=== PATIENT | female | born 1960 | race Caucasian/White ===

== ENCOUNTER → 2017-05-04 | Outpatient (CLI) | payer MEDICARE, OTHER, MEDICAID | END | disposition home or self-care (01) | LOC: SLPLAB 18:32 | DX: G47.33 Obstructive sleep apnea (adult) (pediatric) (principal) | CPT/HCPCS: 95810 ==

== ENCOUNTER 2018-09-11 21:35 | Emergency (ER) | payer MEDICARE, MEDICAID ==
[~2018-09-11] VITALS: Ht 154.9 cm; Wt 110.7 kg
[~2018-09-11 21:35] MED LIST: ALBU2.5V5 NEB; BENZ-8 PO; BREO ELLIPTA 21 EACH INH; CLON1PAT2 TD; DAPA5TAB PO; DOXY100T PO; FLUT1DIS3 IH; HYDR-2145 PO; HYDR-2769 PO; HYDR12.58 PO; ICOS1CAP PO; INSU100V13 SQ; METF500T16 PO; MONT10TA49 PO; PRED-220 PO; PRED20TA PO; TRAM50TA PO; TRIA1TAB3 PO; VENTOLIN HFA18 GM IH; [UNRECOGNIZED DRUG - CODE] PO
--- NOTE | 2018-09-11 22:24 | PHYS DOC ---
Past Medical History Past Medical History: COPD, Diabetes-Type II, Hypertension, Other Additional Past Medical Histor: uterine cancer with radiation treatment, OBSTRUCTIVE BOWEL (JEREMIAH MARTINES APRN) Past Surgical History: , Hysterectomy, Tonsillectomy, Other Additional Past Surgical Histo: tumor removal (JEREMIAH MARTINES APRN) Alcohol Use: None Drug Use: None (JEREMIAH MARTINES APRN) Adult General Chief Complaint Chief Complaint: LOWER EXT PAIN HPI HPI Patient is a 58 year old [female] who presents with [right leg pain worsening over the past 4-5 days. Patient reports she has had some chronic issues with her right leg, reports she has an appointment pending with the surgeon who plans to stent her blood vessel in her right leg in the next few weeks. Reports she has been told us she does not have a pulse on the leg and this is why they are going to do that. Reports over the past 3 days she has had some increasing discomfort, has been unable to walk as much as normally, and has had some increased pain and cramping in her leg. Reports she has some discomfort in both legs, but right leg feels worse, also has noticed some increased swelling in her right leg.] (JEREMIAH MARTINES APRN) Review of Systems Review of Systems Constitutional: Denies fever or chills [] Eyes: Denies change in visual acuity, redness, or eye pain [] HENT: Denies nasal congestion or sore throat [] Respiratory: Denies cough or shortness of breath [] Cardiovascular: No additional information not addressed in HPI [] GI: Denies abdominal pain, nausea, vomiting, bloody stools or diarrhea [] : Denies dysuria or hematuria [] Musculoskeletal: Denies back pain or joint pain, reports pain to bilateral lower legs, right worse than left [] Integument: Denies rash or skin lesions [] Neurologic: Denies headache, focal weakness or sensory changes [] Endocrine: Denies polyuria or polydipsia [] All other systems were reviewed and found to be within normal limits, except as documented in this note. (JEREMIAH MARTINES APRN) Allergies Allergies Allergies Coded Allergies Type Severity Reaction Last Updated Verified Penicillins Allergy Severe ANAPHYLAXIS 01/09/14 Yes Sulfa (Sulfonamide Antibiotics) Allergy Intermediate HIVES 01/09/14 Yes aspirin Allergy Intermediate HIVES 01/09/14 Yes codeine Allergy Intermediate "GOOSE EGG" 08/06/15 Yes erythromycin base Allergy Intermediate 01/09/14 Yes (PHIL LOTT DO) Physical Exam Physical Exam Constitutional: Well developed, well nourished, no acute distress, non-toxic appearance. [] HENT: Normocephalic, atraumatic, bilateral external ears normal, oropharynx moist, no oral exudates, nose normal. [] Eyes: PERRLA, EOMI, conjunctiva normal, no discharge. [] Neck: Normal range of motion, no tenderness, supple, no stridor. [] Cardiovascular:Heart rate regular rhythm, no murmur [] Lungs & Thorax: Bilateral breath sounds clear to auscultation [] Abdomen: Bowel sounds normal, soft, no tenderness, no masses, no pulsatile masses. [] Skin: Warm, dry, no erythema, no rash. [] Back: No tenderness, no CVA tenderness. [] Extremities: No tenderness, no cyanosis, no clubbing, ROM intact, no edema. Positive Homans and right leg. Pulses noticed decreased bilaterally to lower extremities, patient reports this is normal for her. Capillary refill 2 seconds bilaterally. Several varicosities noted to bilateral lower extremities. [] Neurologic: Alert and oriented X 3, normal motor function, normal sensory function, no focal deficits noted. [] Psychologic: Affect normal, judgement normal, mood normal. [] (JEREMIAH MARTINES APRN) Current Patient Data Vital Signs Vital Signs Date Time Temp Pulse Resp B/P (MAP) Pulse Ox O2 Delivery O2 Flow Rate FiO2 09/12/18 00:49 88 20 183/88 (119) 97 Room Air 09/11/18 21:54 98.1 98.1 (PHIL LOTT DO) Lab Values Laboratory Tests Test 09/11/18 22:40 Sodium Level 138 mmol/L (136-145) Potassium Level 3.5 mmol/L (3.5-5.1) Chloride Level 97 mmol/L (98-107) L Carbon Dioxide Level 33 mmol/L (21-32) H Anion Gap 8 (6-14) Blood Urea Nitrogen 13 mg/dL (7-20) Creatinine 1.2 mg/dL (0.6-1.0) H Estimated GFR (Cockcroft-Gault) 46.1 BUN/Creatinine Ratio 11 (6-20) Glucose Level 236 mg/dL (70-99) H Calcium Level 9.7 mg/dL (8.5-10.1) Total Bilirubin 0.3 mg/dL (0.2-1.0) Aspartate Amino Transferase (AST) 15 U/L (15-37) Alanine Aminotransferase (ALT) 29 U/L (14-59) Alkaline Phosphatase 98 U/L (46-116) Total Protein 7.2 g/dL (6.4-8.2) Albumin 3.2 g/dL (3.4-5.0) L Albumin/Globulin Ratio 0.8 (1.0-1.7) L Laboratory Tests 09/11/18 22:40 (PHIL LOTT DO) Lab Values Laboratory Tests Test 09/11/18 22:40 Sodium Level 138 mmol/L (136-145) Potassium Level 3.5 mmol/L (3.5-5.1) Chloride Level 97 mmol/L (98-107) L Carbon Dioxide Level 33 mmol/L (21-32) H Anion Gap 8 (6-14) Blood Urea Nitrogen 13 mg/dL (7-20) Creatinine 1.2 mg/dL (0.6-1.0) H Estimated GFR (Cockcroft-Gault) 46.1 BUN/Creatinine Ratio 11 (6-20) Glucose Level 236 mg/dL (70-99) H Calcium Level 9.7 mg/dL (8.5-10.1) Total Bilirubin 0.3 mg/dL (0.2-1.0) Aspartate Amino Transferase (AST) 15 U/L (15-37) Alanine Aminotransferase (ALT) 29 U/L (14-59) Alkaline Phosphatase 98 U/L (46-116) Total Protein 7.2 g/dL (6.4-8.2) Albumin 3.2 g/dL (3.4-5.0) L Albumin/Globulin Ratio 0.8 (1.0-1.7) L Laboratory Tests 09/11/18 22:40 (JEREMIAH MARTINES APRN) EKG EKG [] (JEREMIAH MARTINES APRN) Radiology/Procedures Radiology/Procedures [] (JEREMIAH MARTINES APRN) Course & Med Decision Making Course & Med Decision Making Pertinent Labs and Imaging studies reviewed. (See chart for details) [Discussed labs with patient. Discussed delay in ultrasound. Patient reports she position rather go home and continued with for the ultrasound tonight. Discussed with patient's findings, discussed importance of keeping appointment with surgeon for her leg surgery upcoming. Patient does report that she does have increased discomfort in her legs when she walks, making her have to stop and rest for a while. Reports she also has increased discomfort when her legs are a laying straight, but is not as bad when her legs are bent. Discussed sleeping with legs bent and pillow under her legs. Discussed contacting surgeon on thursday. Patient in agreement with plan with no further questions or concerns] (JEREMIAH MARTINES APRN) Dragon Disclaimer Dragon Disclaimer This electronic medical record was generated, in whole or in part, using a voice recognition dictation system. (JEREMIAH MARTINES APRN) Departure Departure Impression: Primary Impression: Intermittent claudication Additional Impression: Leg pain Disposition: HOME, SELF-CARE Condition: GOOD Referrals: GABRIEL FUNEZ MD (PCP) Patient Instructions: Intermittent Claudication Additional Instructions: As we discussed, try to sleep with a pillow or a blankets behind your legs, to help with the discomfort you feel at night when her legs are straight. 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 As we discussed, take your Lantus every day to have your blood sugar stay under control, as previously prescribed by your primary care provider.. Attending Signature Attending Signature I have reviewed the PA/NAIL FEEDER's note and plan of care. I was available for consultation as needed during the patient's visit in the emergency department. I agree with the clinical impression, plan, and disposition. (PHIL LOTT DO) Problem Qualifiers Additional Impression: Leg pain Laterality: bilateral Qualified Codes: M79.604 - Pain in right leg; M79 .605 - Pain in left leg JEREMIAH MARTINES APRN Sep 11, 2018 22:24 PHIL LOTT DO Sep 13, 2018 03:22
[2018-09-11 23:07] LABS: CALCIUM 9.7 mg/dL (8.5-10.1); CREATININE 1.2 mg/dL (0.6-1.0); GFR 46.1; POTASSIUM 3.5 mmol/L (3.5-5.1)
[2018-09-11 23:13] LABS: ALBUMIN 3.2 g/dL (3.4-5.0); ALBUMIN/GLOBULIN RATIO 0.8 (1.0-1.7); TOTAL BILIRUBIN 0.3 mg/dL (0.2-1.0); TOTAL PROTEIN 7.2 g/dL (6.4-8.2)
[2018-09-12 00:49] VITALS: BP 183/88
== END 2018-09-12 01:13 | disposition home or self-care (01) ==
LOC: ER 21:35
DX: I73.9 Peripheral vascular disease, unspecified (principal); M79.604 Pain in right leg; I10 Essential (primary) hypertension; E11.9 Type 2 diabetes mellitus without complications; J44.9 Chronic obstructive pulmonary disease, unspecified; Z90.710 Acquired absence of both cervix and uterus; Z88.0 Allergy status to penicillin; Z88.2 Allergy status to sulfonamides; Z88.5 Allergy status to narcotic agent; Z88.6 Allergy status to analgesic agent; Z88.1 Allergy status to other antibiotic agents
CPT/HCPCS: 36415; 80053; 99284

== ENCOUNTER 2019-01-05 18:45 | Emergency (ER) | payer MEDICARE, MEDICAID ==
[~2019-01-05] VITALS: Ht 154.9 cm; Wt 112.0 kg
[~2019-01-05 18:45] MED LIST changes: -CLON1PAT2 TD; +CLON1PAT6 TD
[2019-01-05] MEDS ORDERED: HYDROcodone/APAP 7.5/325MG 1 TAB TABLET PO ONE (19:30)
[2019-01-05 21:01] VITALS: BP 153/85
--- NOTE | 2019-01-05 21:26 | RAD ---
Exam: Humerus 2 views INDICATION: Pain TECHNIQUE: Frontal and lateral views of the left humerus Comparisons: None FINDINGS: Bone mineralization is normal. No acute or healed fractures. Soft tissues are unremarkable. Joint spaces are well-maintained. IMPRESSION: No acute osseous abnormality. Electronically signed by: Chris Hackett MD (01/05/2019 9:24 PM) [facility]
--- NOTE | 2019-01-05 21:27 | RAD ---
Exam: Left upper extremity venous duplex study INDICATION: Pain TECHNIQUE: Using a combination of real-time ultrasound imaging and color-flow and pulse Doppler imaging techniques along with graded compression and augmentation, duplex evaluation of the deep venous systems of left upper extremity was performed. Multiple images were obtained. Findings: There is no sonographic evidence for deep venous thrombosis involving the visualized deep venous structures of the left upper extremity. IMPRESSION: No acute DVT in the left upper extremities. Electronically signed by: Chris Hackett MD (01/05/2019 9:24 PM) [facility]
--- NOTE | 2019-01-05 21:49 | PHYS DOC ---
Past Medical History Past Medical History: COPD, Diabetes-Type II, Hypertension, Other Additional Past Medical Histor: uterine cancer with radiation treatment, OBSTRUCTIVE BOWEL Past Surgical History: , Hysterectomy, Tonsillectomy, Other Additional Past Surgical Histo: tumor removal Alcohol Use: None Drug Use: None Adult General Chief Complaint Chief Complaint: UPPER EXTREMITY PAIN HPI HPI Patient is a 58 year old female who presents to the ED the chief complaint of left upper arm pain. Patient states that the pain started yesterday but got worse today. Patient denies any obvious injury. Patient states that the pain is present even when she is not exerting it. Patient does say that recently she had surgery demonstrates stents because of blockages in her abdominal arteries. Review of Systems Review of Systems Constitutional: Denies fever or chills HENT: Denies nasal congestion, sore throat, sinus tenderness Respiratory: Denies cough or shortness of breath Cardiovascular: Denies CP GI: Denies abdominal pain, nausea, vomiting or diarrhea : Denies dysuria or hematuria Musculoskeletal: Patient complains of pain in her left upper arm Skin: Denies rash or skin lesions Neurologic: Denies headache, focal weakness or sensory changes Complete systems were reviewed and found to be within normal limits, except as documented in this note. Current Medications Current Medications Current Medications Medications (Trade) Dose Ordered Sig/Danny Start Time Stop Time Status Last Admin Dose Admin Acetaminophen/ Hydrocodone Bitart (Lortab 7.5/325) 1 tab 1X ONCE 01/05/19 19:30 01/05/19 19:31 DC 01/05/19 19:32 1 TAB Allergies Allergies Allergies Coded Allergies Type Severity Reaction Last Updated Verified Penicillins Allergy Severe ANAPHYLAXIS 01/09/14 Yes Sulfa (Sulfonamide Antibiotics) Allergy Intermediate HIVES 01/09/14 Yes aspirin Allergy Intermediate HIVES 01/09/14 Yes codeine Allergy Intermediate "GOOSE EGG" 08/06/15 Yes erythromycin base Allergy Intermediate 01/09/14 Yes Physical Exam Physical Exam Constitutional: Well developed, well nourished, no acute distress, non-toxic appearance. HENT: Normocephalic, atraumatic, normocaphalic Eyes: PERRL, EOMI Neck: Normal range of motion, no tenderness, supple Cardiovascular:Heart rate regular rhythm, no murmur Resp: Bilateral breath sounds clear to auscultation Abdomen: Soft, no tenderness, no distension Skin: Warm, dry, no erythema, no rash. Back: No tenderness, no CVA tenderness. Extremities: Point Tenderness in the left upper arm. Neurovascularly intact Neurologic: Alert and oriented X 3, normal motor function, normal sensory function, no focal deficits noted. Psychologic: Affect normal, judgement normal, mood normal. Current Patient Data Vital Signs Vital Signs Date Time Temp Pulse Resp B/P (MAP) Pulse Ox O2 Delivery O2 Flow Rate FiO2 01/05/19 21:03 16 97 01/05/19 21:01 72 153/85 (107) Room Air 01/05/19 18:48 98.1 98.1 EKG EKG EKG interpretation: HR: 72 Sinus rhythm Regular intervals Normal axis Nonspecific ST changes No STEMI Radiology/Procedures Radiology/Procedures Ordered ULTRASOUND of the left upper extremity and x-ray of the left humerus Impressions: Ultrasound of the left upper extremity shows no DVT currently. X-ray shows no acute fractures. Course & Med Decision Making Course & Med Decision Making Pertinent Imaging studies reviewed. (See chart for details) Ordered x-ray of the left humerus an ultrasound of the left upper extremity. Mother negative for acute process. Patient was given normal coronary department for pain control. Most likely arthritic changes. Patient recommended to take NSAIDs Discussed results and plan of care with patient. Patient is instructed to follow up with PCP in one to 2 days. Appropriate discharge instructions given to patient to return to the ED or to seek immediate medical evaluation. Dragon Disclaimer Dragon Disclaimer This electronic medical record was generated, in whole or in part, using a voice recognition dictation system. Departure Departure Impression: Primary Impression: Left arm pain Additional Impression: Arthritis Disposition: 01 HOME, SELF-CARE Condition: STABLE Referrals: GABRIEL FUNEZ MD (PCP) Additional Instructions: Patient is instructed to follow up with PCP in one to 2 days. Appropriate discharge instructions given to patient to return to the ED or to seek immediate medical evaluation. Problem Qualifiers GRANT JUNE DO Jan 05, 2019 21:49
--- NOTE | 2019-01-06 11:50 | EKG ---
[facility] [address] [place] [address] Test Date: 2019-01-05 Test Time: 18:58:00 Pat Name: SEBASTIÁN SMITH Department: Room: Gender: F Rodbuster: ESME : 1960 Requested By: GRANT JUNE Order Number: [id number] Reading MD: Measurements Intervals [place] Rate: 71 P: 55 MA: 144 QRS: -27 QRSD: 86 T: 33 QT: 362 QTc: 397 Interpretive Statements SINUS RHYTHM LEFTWARD AXIS OTHERWISE NORMAL ECG No previous ECG available for comparison
== END 2019-01-05 22:10 | disposition home or self-care (01) ==
LOC: ER 18:45
DX: M79.622 Pain in left upper arm (principal); M19.90 Unspecified osteoarthritis, unspecified site; J44.9 Chronic obstructive pulmonary disease, unspecified; E11.9 Type 2 diabetes mellitus without complications; I10 Essential (primary) hypertension; Z88.0 Allergy status to penicillin; Z88.1 Allergy status to other antibiotic agents; Z88.2 Allergy status to sulfonamides; Z88.5 Allergy status to narcotic agent; Z88.6 Allergy status to analgesic agent
CPT/HCPCS: 73060; 93005; 93971; 99284

== ENCOUNTER 2020-10-02 07:14 | Emergency (ER) | payer MEDICARE, MEDICAID ==
[~2020-10-02] VITALS: Ht 154.9 cm; Wt 109.0 kg
[2020-10-02 08:07] LABS: BASO # 0.2 x10^3/uL (0.0-0.2); BASO % 1 % (0-3); EOS # 0.2 x10^3/uL (0.0-0.7); EOS % 2 % (0-3); HEMOGLOBIN 15.6 g/dL (12.0-15.5); LYMPH # 2.4 x10^3/uL (1.0-4.8); LYMPH % 18 % (24-48); MEAN CORPUSCULAR HEMOGLOBIN 30 pg (25-35); MEAN CORPUSCULAR HGB CONC 34 g/dL (31-37); MEAN CORPUSCULAR VOLUME 89 fL (79-100); MONO # 0.9 x10^3/uL (0.0-1.1); MONO % 7 % (0-9); NEUT # 9.8 x10^3/uL (1.8-7.7); NEUT % 73 % (31-73); PLATELET COUNT 305 x10^3/uL (140-400); RED BLOOD COUNT 5.18 x10^6/uL (3.50-5.40); RED CELL DISTRIBUTION WIDTH 14.9 % (11.5-14.5); WHITE BLOOD COUNT 13.4 x10^3/uL (4.0-11.0)
[2020-10-02 08:20] LABS: CALCIUM 9.6 mg/dL (8.5-10.1); CREATININE 1.1 mg/dL (0.6-1.0); GFR 50.7; POTASSIUM 3.1 mmol/L (3.5-5.1)
[2020-10-02 08:26] LABS: ALBUMIN 3.2 g/dL (3.4-5.0); ALBUMIN/GLOBULIN RATIO 0.8 (1.0-1.7); C-REACTIVE PROTEIN 17.6 mg/L (0-3.3); TOTAL BILIRUBIN 0.4 mg/dL (0.2-1.0); TOTAL PROTEIN 7.3 g/dL (6.4-8.2)
--- NOTE | 2020-10-02 08:39 | RAD ---
EXAM: XR CHEST 1V 10/02/2020 8:00 AM CLINICAL INDICATION: Shortness of breath COMPARISON: Chest radiograph 02/29/2016 TECHNIQUE: AP view of the chest FINDINGS: The heart and mediastinum are normal. Lungs are well-expanded and clear. No consolidatio n, pleural effusion, or pneumothorax. Pulmonary vascularity is normal. The thoracic skeleton is int act. IMPRESSION: Normal chest radiograph. Electronically signed by: Gricelda Stevens MD (10/02/2020 8:37 AM) [id number]
--- NOTE | 2020-10-02 10:28 | EKG ---
[facility] [address] [place] [address] Test Date: 2020-10-02 Test Time: 07:36:55 Pat Name: SEBASTIÁN SMITH Department: Room: Gender: F Director Of Therapy Services: : 1960 Requested By: WILMA DIAZ Order Number: [id number] Reading MD: Measurements Intervals [place] Rate: 72 P: [place]: QRS: -26 QRSD: 172 T: 64 QT: 454 QTc: 499 Interpretive Statements SINUS RHYTHM LEFTWARD AXIS NON SPECIFIC INTRAVENTRICULAR BLOCK QRS(T) CONTOUR ABNORMALITY CONSISTENT WITH SEPTAL INFARCT PROBABLY OLD CONSISTENT WITH INFERIOR INFARCT AGE UNDETERMINED ABNORMAL ECG RI6.02 No previous ECG available for comparison
--- NOTE | 2020-10-02 11:28 | ED.ADGEN ---
Past Medical History Past Medical History: COPD, Diabetes-Type II, Hypertension, Other Additional Past Medical Histor: uterine cancer/radiation treatment,OBSTRUCTIVE BOWEL Past Surgical History: , Hysterectomy, Tonsillectomy, Other Additional Past Surgical Histo: tumor removal,FEMORAL ARTERY STENT Smoking Status: Never Smoker Alcohol Use: None Drug Use: None General Adult EDM: Chief Complaint: SHORTNESS OF BREATH HPI: HPI: Patient is a 60 year old [f__sex] who presents with [] Review of Systems: Review of Systems: Constitutional: Denies fever or chills. [] Eyes: Denies change in visual acuity. [] HENT: Denies nasal congestion or sore throat. [] Respiratory: Denies cough or shortness of breath. [] Cardiovascular: Denies chest pain or edema. [] GI: Denies abdominal pain, nausea, vomiting, bloody stools or diarrhea. [] : Denies dysuria. [] Musculoskeletal: Denies back pain or joint pain. [] Integument: Denies rash. [] Neurologic: Denies headache, focal weakness or sensory changes. [] Endocrine: Denies polyuria or polydipsia. [] Lymphatic: Denies swollen glands. [] Psychiatric: Denies depression or anxiety. [] Current Medications: Current Medications Medications (Trade) Dose Ordered Sig/Danny Start Time Stop Time Status Last Admin Dose Admin Albuterol/ Ipratropium (Duoneb) 3 ml 1X ONCE 10/02/20 11:30 10/02/20 11:31 Allergies: Allergies: Allergies Coded Allergies Type Severity Reaction Last Updated Verified Penicillins Allergy Severe ANAPHYLAXIS 01/09/14 Yes Sulfa (Sulfonamide Antibiotics) Allergy Intermediate HIVES 01/09/14 Yes aspirin Allergy Intermediate HIVES 01/09/14 Yes codeine Allergy Intermediate "GOOSE EGG" 08/06/15 Yes erythromycin base Allergy Intermediate 01/09/14 Yes Physical Exam: PE: Constitutional: Well developed, well nourished, no acute distress, non-toxic appearance. [] HENT: Normocephalic, atraumatic, bilateral external ears normal, oropharynx moist, no oral exudates, nose normal. [] Eyes: PERRLA, EOMI, conjunctiva normal, no discharge. [] Neck: Normal range of motion, no tenderness, supple, no stridor. [] Cardiovascular:Heart rate regular rhythm, no murmur [] Lungs & Thorax: Bilateral breath sounds clear to auscultation [] Abdomen: Bowel sounds normal, soft, no tenderness, no masses, no pulsatile masses. [] Skin: Warm, dry, no erythema, no rash. [] Back: No tenderness, no CVA tenderness. [] Extremities: No tenderness, no cyanosis, no clubbing, ROM intact, no edema. [] Neurologic: Alert and oriented X 3, normal motor function, normal sensory function, no focal deficits noted. [] Psychologic: Affect normal, judgement normal, mood normal. [] Current Patient Data: Labs: Laboratory Tests Test 10/02/20 07:56 10/02/20 08:02 SARS-CoV-2 Antigen (Rapid) Negative (NEGATIVE) White Blood Count 13.4 x10^3/uL (4.0-11.0) H Red Blood Count 5.18 x10^6/uL (3.50-5.40) Hemoglobin 15.6 g/dL (12.0-15.5) H Hematocrit 46.0 % (36.0-47.0) Mean Corpuscular Volume 89 fL (79-100) Mean Corpuscular Hemoglobin 30 pg (25-35) Mean Corpuscular Hemoglobin Concent 34 g/dL (31-37) Red Cell Distribution Width 14.9 % (11.5-14.5) H Platelet Count 305 x10^3/uL (140-400) Neutrophils (%) (Auto) 73 % (31-73) Lymphocytes (%) (Auto) 18 % (24-48) L Monocytes (%) (Auto) 7 % (0-9) Eosinophils (%) (Auto) 2 % (0-3) Basophils (%) (Auto) 1 % (0-3) Neutrophils # (Auto) 9.8 x10^3/uL (1.8-7.7) H Lymphocytes # (Auto) 2.4 x10^3/uL (1.0-4.8) Monocytes # (Auto) 0.9 x10^3/uL (0.0-1.1) Eosinophils # (Auto) 0.2 x10^3/uL (0.0-0.7) Basophils # (Auto) 0.2 x10^3/uL (0.0-0.2) D-Dimer (Samira) 0.51 ug/mlFEU (0.00-0.50) H Sodium Level 139 mmol/L (136-145) Potassium Level 3.1 mmol/L (3.5-5.1) L Chloride Level 101 mmol/L (98-107) Carbon Dioxide Level 33 mmol/L (21-32) H Anion Gap 5 (6-14) L Blood Urea Nitrogen 23 mg/dL (7-20) H Creatinine 1.1 mg/dL (0.6-1.0) H Estimated GFR (Cockcroft-Gault) 50.7 BUN/Creatinine Ratio 21 (6-20) H Glucose Level 159 mg/dL (70-99) H Calcium Level 9.6 mg/dL (8.5-10.1) Total Bilirubin 0.4 mg/dL (0.2-1.0) Aspartate Amino Transferase (AST) 18 U/L (15-37) Alanine Aminotransferase (ALT) 26 U/L (14-59) Alkaline Phosphatase 112 U/L (46-116) Troponin I Quantitative < 0.017 ng/mL (0.000-0.055) C-Reactive Protein, Quantitative 17.6 mg/L (0-3.3) H YH-Edc-O-Type Natriuretic Peptide 216 pg/mL (0-124) H Total Protein 7.3 g/dL (6.4-8.2) Albumin 3.2 g/dL (3.4-5.0) L Albumin/Globulin Ratio 0.8 (1.0-1.7) L Laboratory Tests 10/02/20 08:02 Laboratory Tests 10/02/20 08:02 Vital Signs: Vital Signs Date Time Temp Pulse Resp B/P (MAP) Pulse Ox O2 Delivery O2 Flow Rate FiO2 10/02/20 10:54 74 23 182/77 (112) 97 Nasal Cannula 2.0 10/02/20 07:14 98.1 98.1 EKG: EKG: [] Heart Score: Risk Factors: Risk Factors: DM, Current or recent (<one month) smoker, HTN, HLP, family history of CAD, obesity. Risk Scores: Score 0 - 3: 2.5% MACE over next 6 weeks - Discharge Home Score 4 - 6: 20.3% MACE over next 6 weeks - Admit for Clinical Observation Score 7 - 10: 72.7% MACE over next 6 weeks - Early Invasive Strategies Radiology/Procedures: Radiology/Procedures: [] Course & Med Decision Making: Course & Med Decision Making Pertinent Labs and Imaging studies reviewed. (See chart for details) [] Dragon Disclaimer: Dragon Disclaimer: This electronic medical record was generated, in whole or in part, using a voice recognition dictation system. Departure Departure Impression: Primary Impression: Shortness of breath Disposition: 01 HOME / SELF CARE / HOMELESS Condition: STABLE Referrals: GABRIEL FUNEZ MD (PCP) Patient Instructions: Shortness of Breath WILMA DIAZ MD Oct 02, 2020 11:28
[2020-10-02] MEDS ORDERED: IPRATRPIUM/ALBUTEROL 0.5/2.5MG 3 ML NEBU. NEB ONE (11:30)
[2020-10-02 11:45] VITALS: BP 149/85
== END 2020-10-02 12:11 | disposition home or self-care (01) ==
LOC: ER 07:14
DX: R06.02 Shortness of breath (principal); Z20.822 Contact with and (suspected) exposure to COVID-19; J44.9 Chronic obstructive pulmonary disease, unspecified; E11.9 Type 2 diabetes mellitus without complications; I10 Essential (primary) hypertension; Z95.5 Presence of coronary angioplasty implant and graft; Z88.0 Allergy status to penicillin; Z88.2 Allergy status to sulfonamides; Z88.5 Allergy status to narcotic agent; Z88.1 Allergy status to other antibiotic agents; Z88.6 Allergy status to analgesic agent
CPT/HCPCS: 36415; 71045; 80053; 83880; 84484; 85025; 85379; 86140; 87426; 93005; 99285-25